=== PATIENT | female | born 1960 | race Caucasian/White ===

== ENCOUNTER → 2020-09-01 | Day surgery (SDC) | payer OTHER ==
[~2020-09-01] VITALS: Ht 167.6 cm; Wt 90.7 kg
[~2020-09-01] MED LIST: ACETAMINOPHEN500 M1 PO; ASPIRIN EC81 M1 PO; PRILOSEC20 MG PO; [UNRECOGNIZED DRUG - OTHER] PO
[2020-09-01 08:35] LABS: HCT 43.2 % (37.0-47.0); HGB 14.1 g/dl (12.5-16.0); MCH 31.5 pg (25.0-31.0); MCHC 32.6 g/dL (32.0-36.0); MCV 96.6 fL (78.0-100.0); MPV 10.3 fL (6.0-9.5); RBC 4.47 M/uL (4.20-5.40); RDW 12.4 % (11.5-14.0); WBC 4.8 K/uL (4.0-10.5)
[2020-09-01 08:46] LABS: ALBUMIN 3.8 g/dL (3.4-5.0); BILIRUBIN - TOTAL 0.8 mg/dL (0.2-1.0); CREATININE 0.69 mg/dL (0.51-0.95); GLOBULIN (CALCULATION) 3.7 g/dL; POTASSIUM 4.1 mmol/L (3.5-5.1); TOTAL PROTEIN 7.5 g/dL (6.4-8.2)
== END | disposition home or self-care (01) ==
LOC: FAS 07:54
PROVIDERS: Surgery
DX: Z12.11 Encounter for screening for malignant neoplasm of colon (principal); K31.9 Disease of stomach and duodenum, unspecified; K21.9 Gastro-esophageal reflux disease without esophagitis; Z88.0 Allergy status to penicillin; Z79.82 Long term (current) use of aspirin; Z79.899 Other long term (current) drug therapy
CPT/HCPCS: 43239; G0121; 36415; 80053; J2704; J7120